=== PATIENT | female | born 1940 | race African-American/Black ===

== ENCOUNTER 2018-10-09 15:51 | Emergency (ER) | payer MEDICARE, OTHER ==
[~2018-10-09] VITALS: Ht 165.1 cm; Wt 65.0 kg
[~2018-10-09 15:51] MED LIST: ASPI-1393 PO; ATEN50TA PO; CHOL100044 GT; CLON0.1T PO; FLUO20CA33 PO; FLUT1DIS INH; FURO-152 PO; HYDR-4133 PO; LOSA100T3 PO; MELO-106 PO; NITR0.4T49 SL; NORCO; SIMV40TA5 PO; TIOT18CA3 INH; TRIA1TAB94 PO; VENL75CA55 PO
[2018-10-09 16:47] LABS: BASOPHILS % 0.8 % (0.0-2.0); EOSINOPHILS % 2.5 % (0.0-5.0); HEMATOCRIT. 26.3 % (36.0-48.0); HEMOGLOBIN. 8.7 g/dL (12.0-16.0); LYMPHOCYTES % 15.4 % (20.0-50.0); MEAN CORPUSCULAR VOLUME 84.3 fL (81.0-99.0); MEAN PLATELET VOLUME 6.3 fl (7.4-10.4); MONOCYTES % 10.8 % (2.0-8.0); NEUTROPHILS % 70.5 % (40.0-76.0); PLATELET 221 x1000/uL (130-400); RED BLOOD CELL COUNT 3.12 mill/uL (4.2-5.4); RED CELL DISTRIBUTION WIDTH 16.9 % (11.6-14.6)
[2018-10-09 16:52] LABS: CHLORIDE 105 mEq/L (98-107)
[2018-10-09] MEDS ORDERED: FUROSEMIDE 40MG/4ML VIAL IVP ONE (17:45)
[2018-10-09] MEDS ORDERED: ASPIRIN 81MG TABLET PO ONE (17:45)
[2018-10-09 17:51] LABS: INR 1.5; PROTHROMBIN TIME 15.5 sec (9.6-11.0)
[2018-10-09] MEDS ORDERED: ENOXAPARIN 80MG/0.8ML SYR SUBCUT ONE (18:30)
[2018-10-09 20:49] VITALS: BP 147/67
== END 2018-10-09 20:43 | disposition short-term general hospital (02) ==
LOC: ER 16:24 → CANBEDREQ 18:32 → ER 20:43
DX: I11.0 Hypertensive heart disease with heart failure (principal); I50.9 Heart failure, unspecified; R53.1 Weakness; J44.9 Chronic obstructive pulmonary disease, unspecified; Z91.013 Allergy to seafood; Z88.5 Allergy status to narcotic agent; Z88.6 Allergy status to analgesic agent; Z88.2 Allergy status to sulfonamides; Z79.899 Other long term (current) drug therapy; Z95.1 Presence of aortocoronary bypass graft
CPT/HCPCS: 36415; 71045; 80053; 83880; 84484; 85025; 85610; 93005; 96372; 96374; 99285; J1650; J1940

== ENCOUNTER 2019-05-18 16:41 | Emergency (ER) | payer MEDICARE, OTHER ==
[~2019-05-18] VITALS: Ht 160 cm; Wt 68.8 kg
[~2019-05-18 16:41] MED LIST changes: -ASPI-1393 PO; +ASPI-1497 PO; +SIMV-46 PO; -SIMV40TA5 PO
[2019-05-18 17:37] LABS: BASOPHILS % 0.1 % (0.0-2.0); HEMATOCRIT. 34.3 % (36.0-48.0); HEMOGLOBIN. 11.7 g/dL (12.0-16.0); LYMPHOCYTES % 19.6 % (20.0-50.0); MEAN CORPUSCULAR HEMOGLOBIN 27.8 pg (28.0-32.0); MEAN CORPUSCULAR VOLUME 81.9 fL (81.0-99.0); MEAN PLATELET VOLUME 7.2 fl (7.4-10.4); MONOCYTES % 8.8 % (2.0-8.0); NEUTROPHILS % 68.5 % (40.0-76.0); PLATELET 224 x1000/uL (130-400); RED CELL DISTRIBUTION WIDTH 15.8 % (11.6-14.6)
[2019-05-18 17:42] LABS: CHLORIDE 107 mEq/L (98-107)
[2019-05-18 17:45] LABS: ETHANOL BLOOD < 10 mg/dL
[2019-05-18 17:49] LABS: LDL CHOLESTEROL 51 mg/dL (5-100)
[2019-05-18 17:51] LABS: INR 3.2; PROTHROMBIN TIME 33.2 sec (9.6-11.0)
[2019-05-18] MEDS ORDERED: ONDANSETRON HCL 4MG/2ML INJ IV PRN (20:45)
[2019-05-18] MEDS ORDERED: ACETAMINOPHEN 325MG TABLET PO PRN (20:45)
[2019-05-18 22:00] VITALS: BP 166/73
== END 2019-05-19 00:51 | disposition left against medical advice (07) ==
LOC: ER 16:41 → EDBEDREQTM 18:29 → EDBEDREQSVC 18:29 → EDBEDREQ 18:29 → ER 05-19 00:51 → ENRESERV 05-19 07:45 → CANBEDREQ 05-19 10:16
DX: R53.1 Weakness (principal); R47.81 Slurred speech; H53.8 Other visual disturbances; J44.9 Chronic obstructive pulmonary disease, unspecified; I11.9 Hypertensive heart disease without heart failure; I25.2 Old myocardial infarction; Z98.890 Other specified postprocedural states; Z96.659 Presence of unspecified artificial knee joint; Z79.899 Other long term (current) drug therapy; Z79.82 Long term (current) use of aspirin; Z88.5 Allergy status to narcotic agent; Z88.6 Allergy status to analgesic agent; Z91.013 Allergy to seafood; Z88.2 Allergy status to sulfonamides; Z88.8 Allergy status to other drugs, medicaments and biological substances
CPT/HCPCS: 36415; 71045; 80053; 80320; 82962; 83721; 84484; 85025; 93005; 99285; G0480

== ENCOUNTER 2020-04-28 02:26 | Emergency (ER) | payer MEDICARE, OTHER ==
[~2020-04-28] VITALS: Ht 165.1 cm; Wt 59.0 kg
[~2020-04-28 02:26] MED LIST changes: +VENL75CA3 PO; -VENL75CA55 PO
[2020-04-28] MEDS ORDERED: ONDANSETRON HCL 4MG/2ML INJ IV STA (03:08)
[2020-04-28] MEDS ORDERED: MORPHINE SULFATE 4 MG/ML CPJ (NOT FOR IM USE) IV STA (03:08)
[2020-04-28] MEDS ORDERED: SODIUM CHLORIDE 0.9% 1,000 ML IV ONE (03:15)
[2020-04-28 03:43] LABS: CHLORIDE 112 mEq/L (98-107)
[2020-04-28 03:45] LABS: PROTHROMBIN TIME 10.6 sec (9.6-11.0)
[2020-04-28 04:52] LABS: BASOPHILS % 0.8 % (0.0-2.0); EOSINOPHILS % 3.4 % (0.0-5.0); HEMOGLOBIN. 9.9 g/dL (12.0-16.0); LYMPHOCYTES % 30.9 % (20.0-50.0); MEAN CORPUSCULAR HEMOGLOBIN 27.1 pg (28.0-32.0); MEAN CORPUSCULAR VOLUME 81.8 fL (81.0-99.0); MEAN PLATELET VOLUME 7.2 fl (7.4-10.4); MONOCYTES % 9.6 % (2.0-8.0); NEUTROPHILS % 55.3 % (40.0-76.0); PLATELET 178 x1000/uL (130-400); RED BLOOD CELL COUNT 3.66 mill/uL (4.2-5.4); RED CELL DISTRIBUTION WIDTH 14.8 % (11.6-14.6)
[2020-04-28] MEDS ORDERED: KETOROLAC 15MG/ML VIAL IV ONE (06:00)
[2020-04-28] MEDS ORDERED: ACETAMINOPHEN 325MG TABLET PO ONE (06:15)
[2020-04-28] MEDS ORDERED: IPRATROPIUM/ALBUTEROL 0.5-3(2.5)MG/3ML NEB NEB PRN (07:30)
[2020-04-28] MEDS ORDERED: ONDANSETRON HCL 4MG/2ML INJ IV PRN (07:30)
[2020-04-28] MEDS ORDERED: DOCUSATE SODIUM 100MG CAPSULE PO PRN (07:30)
[2020-04-28] MEDS ORDERED: POTASSIUM CHLORIDE 20MEQ TABLET SR PO SCH (07:30)
[2020-04-28] MEDS ORDERED: TRAMADOL 50MG TABLET PO PRN (07:30)
[2020-04-28] MEDS ORDERED: ZOLPIDEM TARTRATE 5MG TABLET PO PRN (07:30)
[2020-04-28] MEDS ORDERED: CLONIDINE 0.1MG TABLET PO PRN (07:30)
[2020-04-28] MEDS ORDERED: MAGNESIUM/ALUMINUM HYDROXIDE/SIMETHICONE 30ML UDC PO PRN (07:30)
[2020-04-28] MEDS ORDERED: GUAIFENESIN 200MG/10ML SUGAR FREE UDC PO PRN (07:30)
[2020-04-28] MEDS ORDERED: NITROGLYCERIN 0.4MG TABLET SL SL PRN (07:30)
[2020-04-28] MEDS ORDERED: ACETAMINOPHEN 325MG TABLET PO PRN ×2 (07:30)
[2020-04-28 08:32] LABS: FOLIC ACID (FOLATE) SERUM > 20.00 ng/mL (>5.38)
[2020-04-28 08:34] LABS: VITAMIN B12 SERUM 781 pg/mL (211-911)
[2020-04-28] MEDS ORDERED: CHOLECALCIFEROL (D3) 1000 UNIT TABLET PO SCH (09:00)
[2020-04-28] MEDS ORDERED: ZINC SULFATE 220 MG ( 50 ) CAPSULE PO SCH (09:00)
[2020-04-28] MEDS ORDERED: FAMOTIDINE 20MG TABLET PO SCH (09:00)
[2020-04-28] MEDS ORDERED: ASCORBIC ACID 500 MG TABLET PO SCH (09:00)
[2020-04-28] MEDS ORDERED: ENOXAPARIN 30MG/0.3ML SYR SUBCUT SCH (09:00)
[2020-04-28] MEDS ORDERED: CLOPIDOGREL 75MG TABLET PO SCH (09:00)
[2020-04-28 11:20] VITALS: BP 157/65
== END 2020-04-28 10:33 | disposition short-term general hospital (02) ==
LOC: ER 02:26 → ENRESERV 10:50 → CANRESERV 10:50 → CANBEDREQ 11:07
DX: R55 Syncope and collapse (principal); S39.012A Strain of muscle, fascia and tendon of lower back, initial encounter; I25.2 Old myocardial infarction; I10 Essential (primary) hypertension; J44.1 Chronic obstructive pulmonary disease with (acute) exacerbation; Z91.013 Allergy to seafood; Z88.5 Allergy status to narcotic agent; Z88.6 Allergy status to analgesic agent; Z88.2 Allergy status to sulfonamides; Z79.899 Other long term (current) drug therapy; Z79.82 Long term (current) use of aspirin; W18.30XA Fall on same level, unspecified, initial encounter; Y93.89 Activity, other specified; Y92.89 Other specified places as the place of occurrence of the external cause; Y99.8 Other external cause status
CPT/HCPCS: 36415; 70450; 71045; 71250; 72125; 72170; 74176; 80053; 80061; 82607; 82746; 83036; 83540; 83550; 83615; 84145; 84484; 85025; 85379; 85610; 86850; 86900; 86901; 93005; 93880; 93970; 96361; 96372; 96374; 96375; 99291; J1650; J1885; J2270; J2405; J7030